=== PATIENT | female | born 1990 | race Caucasian/White ===

== ENCOUNTER 2019-09-07 17:57 | Emergency (ER) | payer BC ==
[~2019-09-07] VITALS: Ht 162.6 cm; Wt 52.6 kg
[2019-09-07] MEDS ORDERED: ALPR0.255 PO (18:38)
--- NOTE | 2019-09-07 19:12 | NUR ---
still for urine & chest x-ray
[2019-09-07 20:00] LABS: BASOPHILS # (AUTO) 0.1 K/uL (0.0-8.0); BASOPHILS % (AUTO) 1.1 % (0.0-2.0); EOSINOPHILS # (AUTO) 0.2 K/uL (0.0-0.7); HEMATOCRIT 33.6 % (31.2-41.9); HEMOGLOBIN 10.9 g/dL (10.9-14.3); LYMPHOCYTES % (AUTO) 23.9 % (20.5-51.5); MEAN CORPUSCULAR HEMOGLOBIN 24.9 uug (24.7-32.8); MEAN CORPUSCULAR HGB CONC 33 g/dL (32.3-35.6); MEAN CORPUSCULAR VOLUME 76.7 fL (75.5-95.3); MONOCYTES # (AUTO) 0.5 K/uL (2.0-10.0); MONOCYTES % (AUTO) 6.1 % (0.0-11.0); NEUTROPHILS # (AUTO) 5.7 K/uL (1.8-8.9); NEUTROPHILS % (AUTO) 66.9 % (38.5-71.5); PLATELET COUNT (AUTO) 261 K/uL (179-408); RED BLOOD CELL COUNT(AUTO) 4.38 MIL/uL (3.63-4.92); WHITE BLOOD COUNT (AUTO) 8.5 K/uL (3.8-11.8)
[2019-09-07 20:02] LABS: *URINE HCG, QUAL NEGATIVE (NEGATIVE)
[2019-09-07 20:13] LABS: CREATININE 0.9 mg/dL (0.6-1.3); POTASSIUM 3.8 mmol/L (3.5-5.1)
[2019-09-07 20:18] LABS: BILIRUBIN,TOTAL 0.3 mg/dL (0.2-1.0); TOTAL PROTEIN, SERUM 7.3 g/dL (6.4-8.2)
--- NOTE | 2019-09-07 20:58 | NUR ---
MSE COMPLETED, PT D/C'D HOME, ACI/RX X1 GIVEN.
[2019-09-07 20:59] VITALS: BP 110/82
== END 2019-09-07 20:59 | disposition home or self-care (01) ==
LOC: ER 18:00
DX: J20.9 Acute bronchitis, unspecified (principal); F17.210 Nicotine dependence, cigarettes, uncomplicated; Z20.828 Contact with and (suspected) exposure to other viral communicable diseases; Q61.3 Polycystic kidney, unspecified; R94.31 Abnormal electrocardiogram [ECG] [EKG]; E87.1 Hypo-osmolality and hyponatremia; F98.8 Other specified behavioral and emotional disorders with onset usually occurring in childhood and adolescence
CPT/HCPCS: 36415; 71046; 80053; 84703; 85025; 85730; 93005; 99285; 99406; U0003; A4663